=== PATIENT | female | born 1990 | race Caucasian/White ===

== ENCOUNTER 2024-03-05 09:47 | Emergency (ER) | payer SELFPAY ==
[~2024-03-05] VITALS: Ht 168 cm; Wt 65.0 kg
[2024-03-05 09:56] VITALS: TEMP 98.1
[2024-03-05] MEDS ORDERED: NS 1,000 ML IV ONE (10:30)
[2024-03-05 11:02] LABS: HEMOGLOBIN 12.6 g/dl (12.5-16.0); MEAN CELL VOLUME 85 fl (80.0-100.0); MEAN CORPUSCULAR HEMOGLOBIN 29 pg (27-31); MEAN CORPUSCULAR HGB CONC 34 g/dl (33.0-37.0); MEAN PLATELET VOLUME 9.8 fl (7.4-10.4); PLATELET COUNT 223 K/mm3 (130-400); RED BLOOD COUNT 4.33 M/mm3 (4.10-5.30); REDCELL DISTRIBUTION WIDTH-CV 12.2 % (11.5-14.5)
[2024-03-05 11:19] LABS: HEMATOCRIT 36.6 % (37.0-47.0)
[2024-03-05 11:20] LABS: ALANINE AMINOTRANSFERASE 37 U/L (0-55); ALBUMIN 3.5 g/dL (3.5-5.0); ALKALINE PHOSPHATASE 86 U/L (40-150); ANION GAP 10 mmol/L (7-16); AST,SGOT 26 U/L (5-34); BILIRUBIN,TOTAL 0.3 mg/dL (0.2-1.2); BLOOD UREA NITROGEN 10 mg/dL (7-19); C-REACTIVE PROTEIN 3.02 mg/dL (0.00-0.50); CALCIUM 9.5 mg/dL (8.4-10.2); CHLORIDE 108 mEq/L (98-107); CREATININE, serum 0.71 mg/dL (0.57-1.11); GLUCOSE 83 mg/dL (70-99); POTASSIUM 4.1 mEq/L (3.5-4.5); SODIUM 140 mEq/L (136-145)
[2024-03-05 11:21] LABS: TROPONIN-I < 0.010 ng/mL (0.00-0.033)
[2024-03-05 11:31] LABS: EOSINOPHIL 6 % (0-4); LYMPHOCYTE 17 % (20.0-51.0); NEUTROPHILS 70 % (42.0-75.2); PLATELET ESTIMATE NORMAL (NORMAL)
[2024-03-05 11:48] LABS: COLLECTION METHOD CLEAN CATCH
[2024-03-05 12:00] LABS: URINE APPEARANCE Hazy (CLEAR/HAZY); URINE COLOR YELLOW (YELLOW)
[2024-03-05 12:01] LABS: URINE BLOOD NEGATIVE (NEGATIVE); URINE GLUCOSE NEGATIVE (NEGATIVE); URINE KETONE NEGATIVE (NEGATIVE); URINE NITRATE NEGATIVE (NEGATIVE); URINE PROTEIN(semi-quant) NEGATIVE (NEGATIVE); URINE UROBILINOGEN 0.2 E.U/dL (0.2-1.0)
[2024-03-05] MEDS ORDERED: CEFTIN500 MG PO (12:40)
[2024-03-05 12:47] VITALS: BP 116/98; PULSE 90
== END 2024-03-05 12:55 | disposition home or self-care (01) ==
LOC: COL.ER 09:47
PROVIDERS: Nurse Practitioner
DX: R52 Pain, unspecified (principal); N39.0 Urinary tract infection, site not specified
CPT/HCPCS: J7030

== ENCOUNTER 2024-05-29 16:55 | Emergency (ER) | payer SELFPAY ==
[~2024-05-29] VITALS: Ht 170.2 cm; Wt 68.2 kg
[~2024-05-29 16:55] MED LIST: CEFTIN500 MG PO
[2024-05-29] MEDS ORDERED: Ketorolac 15 MG/ML VIAL IV ONE (17:45)
[2024-05-29] MEDS ORDERED: NS 1,000 ML IV ONE (17:45)
[2024-05-29] MEDS ORDERED: diphenhydrAMINE 50 MG/ML 1 ML VIAL IV ONE (17:45)
[2024-05-29 18:00] LABS: HEMOGLOBIN 12.9 g/dl (12.5-16.0); MEAN CELL VOLUME 86 fl (80.0-100.0); MEAN CORPUSCULAR HEMOGLOBIN 30 pg (27-31); MEAN CORPUSCULAR HGB CONC 35 g/dl (33.0-37.0); MEAN PLATELET VOLUME 9.7 fl (7.4-10.4); PLATELET COUNT 258 K/mm3 (130-400); RED BLOOD COUNT 4.25 M/mm3 (4.10-5.30); REDCELL DISTRIBUTION WIDTH-CV 12.9 % (11.5-14.5)
[2024-05-29 18:13] LABS: HEMATOCRIT 36.5 % (37.0-47.0)
[2024-05-29 18:21] LABS: ALBUMIN 3.4 g/dL (3.5-5.0); BILIRUBIN,TOTAL 0.4 mg/dL (0.2-1.2); CREATININE, serum 0.66 mg/dL (0.57-1.11); POTASSIUM 3.9 mEq/L (3.5-4.5); TOTAL PROTEIN 7.8 g/dl (6.2-8.1)
[2024-05-29 19:14] LABS: BAND 14 % (0-10); LYMPHOCYTE 20 % (20.0-51.0); METAMYELOCYTE 2 % (0-0); NEUTROPHILS 58 % (42.0-75.2); NUCLEATED RED BLOOD CELL 1 (0-6); PLATELET ESTIMATE NORMAL (NORMAL)
[2024-05-29 19:15] LABS: ANISOCYTOSIS 1+
[2024-05-29 19:18] VITALS: BP 148/94; PULSE 88; TEMP 98.2
== END 2024-05-29 19:18 | disposition home or self-care (01) ==
LOC: COL.ER 16:55
PROVIDERS: Nurse Practitioner
DX: G43.909 Migraine, unspecified, not intractable, without status migrainosus (principal)
CPT/HCPCS: J1200; J1885; J2765; J7030